=== PATIENT | female | born 1945 | race Caucasian/White ===

== ENCOUNTER 2017-07-12 15:18 | Emergency (ER) | payer OTHER ==
[~2017-07-12] VITALS: Ht 162.6 cm; Wt 87.2 kg
[2017-07-12 16:02] LABS: HEMATOCRIT 41.5 % (36.0-46.0); HEMOGLOBIN 14.1 G/DL (11.9-15.5); MCH 30.2 PG (29.0-34.0); MCV 88.9 FL (83-99); PLATELET COUNT 196 K/uL (156-360); RBC DIS.WIDTH-CV 12.3 % (11.8-14.6); RBC DIS.WIDTH-SD 39.8 % (39-53); RED BLOOD COUNT 4.67 M/uL (3.80-5.20); WHITE BLOOD COUNT 7.2 K/uL (4.1-10.2)
[2017-07-12 16:18] LABS: ALBUMIN 3.7 g/dL (3.2-4.8); CHLORIDE 104 mEq/L (99-109); POTASSIUM 4.3 mEq/L (3.7-5.4); SODIUM 139 mEq/L (136-147)
[2017-07-12 16:20] LABS: GLUCOSE 115 mg/dL (70-99)
[2017-07-12 16:22] LABS: TOTAL BILIRUBIN 0.6 mg/dL (0.0-1.0)
[2017-07-12 16:24] LABS: ALKALINE PHOSPHATASE 124 IU/L (3-129); CREATININE 0.8 mg/dL (0.6-1.3); GFR ESTIMATE (CALCULATED) > 59 mL/min/
[2017-07-12 16:25] LABS: UREA NITROGEN (BUN) 9 mg/dL (9-23)
[2017-07-12 16:26] LABS: AST (GOT) 17 IU/L (2-34)
[2017-07-12 16:27] LABS: ALT (GPT) 15 IU/L (3-49)
[2017-07-12 17:24] LABS: APPEARANCE CLEAR ((CLEAR)); BILIRUBIN NEGATIVE; BLOOD NEGATIVE; COLOR YELLOW ((YELLOW)); GLUCOSE (STRIP) NEGATIVE; KETONES 5; LEUKOCYTES NEGATIVE; NITRITE NEGATIVE; PROTEIN (STRIP) NEGATIVE; SPECIFIC GRAVITY 1.016 (1.000-1.030); UCUL ADDED? NO
[2017-07-12] MEDS ORDERED: AUGMENTIN875 MG PO (20:05)
[2017-07-12] MEDS ORDERED: NORCO 5/3251 TABLET PO (20:05)
[2017-07-12] MEDS ORDERED: PROMETHAZINE HC25 M1 PO (20:05)
[2017-07-12] MEDS ORDERED: FLAGYL500 MG PO (20:05)
[2017-07-12 20:35] VITALS: BP 152/70
== END 2017-07-12 20:35 | disposition home or self-care (01) ==
LOC: EME 15:18
DX: R10.32 Left lower quadrant pain (principal); F41.9 Anxiety disorder, unspecified; F32.9 Major depressive disorder, single episode, unspecified; Z86.718 Personal history of other venous thrombosis and embolism; Z95.5 Presence of coronary angioplasty implant and graft; Z90.49 Acquired absence of other specified parts of digestive tract
CPT/HCPCS: 74177; 80053; 81003; 85027; 99281; 99285; J7040